=== PATIENT | female | born 1975 | race Two or more races ===

== ENCOUNTER 2023-04-07 15:16 | Day surgery (SDC) | payer BC ==
[2023-04-07] MEDS ORDERED: XYLOCAINE-MPF 1% 5ML SDV IJ ONE (15:17)
[2023-04-07] MEDS ORDERED: Decadron 4 MG INJ IV ONE (15:17)
[2023-04-07] MEDS ORDERED: Sodium Chloride 0.9(Preservative Free) 10 ML IJ ONE (15:17)
[2023-04-07 17:06] LABS: HCG URINE TEST NEGATIVE (NEGATIVE)
[2023-04-07] MEDS ORDERED: Lactated Ringers 1,000 ML IV ONE (18:21)
[2023-04-07] MEDS ORDERED: TORAdol 30 mg Injection ONE (18:37)
--- NOTE | 2023-04-07 19:32 | XRAY ---
Indication: Cervical YESSICA. Intraoperative fluoroscopy provided for 26 seconds. 5 digital spot images submitted for interpretation demonstrates posterior needle tip projecting posterior to cervical thoracic junction. Small amount of contrast injected for needle tip placement. Correlate with intraoperative findings/report.
--- NOTE | 2023-04-08 08:39 | XRAY ---
26 seconds of fluoroscopy was used in surgery for a cervical YESSICA.
== END 2023-04-07 18:55 | disposition home or self-care (01) ==
LOC: SDC-PAIN 15:16
PROVIDERS: ATTEND Psychiatry & Neurology Pain Medicine
DX: M54.12 Radiculopathy, cervical region (principal); R73.03 Prediabetes
CPT/HCPCS: 62321; 72040; 77003; 81025; J1100; J1885; Q9966

== ENCOUNTER 2023-05-19 09:38 | Day surgery (SDC) | payer BC ==
[2023-05-19] MEDS ORDERED: Sodium Chloride 0.9(Preservative Free) 10 ML IJ ONE (09:39)
[2023-05-19] MEDS ORDERED: LIDOCAINE HCL 1% 50 MG/5 ML VL PF IJ ONE (09:39)
[2023-05-19] MEDS ORDERED: Depo-Medrol 40 MG/ML IM ONE (09:39)
[2023-05-19 10:54] LABS: HCG URINE TEST NEGATIVE (NEGATIVE)
[2023-05-19] MEDS ORDERED: DIPRIVAN 200 MG/20 ML IV ONE (12:41)
[2023-05-19] MEDS ORDERED: Lactated Ringers 1,000 ML IV ONE (15:02)
--- NOTE | 2023-05-19 15:18 | XRAY ---
Indication: Lumbar YESSICA. Intraoperative fluoroscopy provided for 12 seconds. 3 digital spot images submitted for interpretation demonstrates posterior needle tip projecting posterior to L3. Small amount of contrast injected for needle tip placement. Correlate with intraoperative findings/report. Incidental incompletely visualized posterior bilateral L4-S1 fusion hardware
--- NOTE | 2023-05-19 16:46 | XRAY ---
12 seconds of fluoroscopy was used in surgery for a lumbar YESSICA.
== END 2023-05-19 13:18 | disposition home or self-care (01) ==
LOC: SDC-PAIN 09:38
PROVIDERS: ATTEND Psychiatry & Neurology Pain Medicine
DX: M54.16 Radiculopathy, lumbar region (principal); E11.9 Type 2 diabetes mellitus without complications
CPT/HCPCS: 62323; 72100; 77003; 81025; 82947; J1030; J2001; J2704; Q9966